=== PATIENT | female | born 1980 | race Caucasian/White ===

== ENCOUNTER 2024-12-29 10:44 | Emergency (ER) | payer OTHER, SELFPAY ==
--- NOTE | ~2024-12-29 | US_ITS ---
CLINICAL HISTORY: RUQ pain, vomiting US abdomen limited, with color and pulsed Doppler of the portal vein: Comparison: None Findings: Liver is normal in size, 14.1 cm in length. Main portal vein Doppler shows antegrade flow. No sonographic Cortes sign. Gallbladder is normal in size. There are no calculi. Gallbladder wall thickness is 2 mm. Common bile duct diameter is 4 mm. Right kidney measures 9.2 cm. No ascites in the right upper quadrant. Impression: Normal right upper quadrant ultrasound This document has been electronically signed by: Nikita Camarillo MD on 12/29/2024 14:17:43
[2024-12-29 10:54] VITALS: BP 113/74; PULSE 100; RESP 18; TEMP 36.1; O2SAT 100; BMI 31.4
[2024-12-29 11:14] LABS: MANUAL DIFF FLAG NO
[2024-12-29 11:28] LABS: Basophils Absolute Auto 0.1 X10*3/uL (0.0-0.2); Basophils Percent Auto 0.6 % (0-2); Eosinophils Absolute Auto 0.2 X10*3/uL (0.0-0.4); Eosinophils Percent Auto 2.8 % (0-4); Hemoglobin 14.2 g/dl (12.0-16.0); Imm Gran Abs Auto 0.02 X10*3/uL (0.00-0.03); Imm Gran Pct Auto 0.2 % (0.0-0.4); Lymphocytes Absolute Auto 1.3 X10*3/uL (1.2-4.9); Mean Corpuscular HGB Conc 33.8 g/dl (31.0-35.0); Mean Corpuscular Volume 88.6 fL (80.0-98.0); Mean Platelet Volume 10.6 fL (9.4-12.3); Monocytes Absolute Auto 0.7 X10*3/uL (0.1-1.2); Monocytes Percent Auto 8.6 % (2-11); Neutrophils Absolute Auto 6.3 x10*3/uL (2.0-8.3); Neutrophils Percent Auto 72.8 % (45-73); Platelet Count 263 X10*3/uL (160-400); Red Blood Count 4.74 X10*6/uL (4.20-5.50); Red Cell Distribution Width 12.9 % (11.0-16.0); White Blood Count 8.6 X10*3/uL (4.8-10.8)
[2024-12-29 11:31] LABS: Magnesium 1.8 mg/dL (1.6-2.6)
[2024-12-29 11:32] LABS: Alanine Aminotransferase 15 U/L (0-31); Albumin Level 4.5 g/dL (3.5-5.0); Alkaline Phosphatase 55 U/L (39-117); Anion Gap 14 (12-20); Aspartate Amino Transferase 16 U/L (5-31); Bilirubin Total 1.3 mg/dL (0.0-1.0); Blood Urea Nitrogen 14 mg/dL (9-16); Calcium 9.8 mg/dL (8.4-10.2); Carbon Dioxide 22 mmol/L (22-29); Chloride 109 mmol/L (96-108); Creatinine Clr Calc Pharmacy 108.9; Estimated Glomerular Filt Rate > 60; Glucose Random 91 mg/dL (60-115); Lipase 11 U/L (8-78); Potassium 5.1 mmol/L (3.3-5.1); Sodium 140 mmol/L (135-145); Total Protein 7.4 g/dL (6.5-8.0)
--- NOTE | 2024-12-29 13:10 | ED_ITS ---
HPI - Abdominal Pain General Chief Complaint: Abdominal Pain Stated Complaint: abd pain Time Seen by Provider: 12/29/24 13:02 Source: patient and family Mode of arrival: ambulatory Limitations: no limitations History of Present Illness ED Provider: ALLA HPI narrative: 44 yo female with PMH of HTN, DM, PCOS, endometriosis, here with c/o RUQ pain, n/v vomiting since yesterday. She also has intermittent diarrhea. No fevers. She tried to wait at [facility] but was not seen for 12 hours so she left triage yesterday. She has only had prior ovarian cyst removal no other surgeries. She comes in as the pain is not better and she has not been able to eat or drink. She denies travel, sick contacts, food exposures. MD elicited complaint: abdominal pain Pertinent past history: none Onset (ago): day(s) (yesterday) Pain Consistency: constant Location: epigastric, periumbilical and RUQ Severity: moderate Quality: stabbing and aching Radiation: epigastric Migration to: no migration Exacerbating factors: eating, vomiting and movement Relieving factors: nothing Associated symptoms: nausea, vomiting and diarrhea Related Data Previous Rx's ?Medication ?Instructions ?Recorded ondansetron 4 mg disintegrating 4 mg PO Q8H PRN nausea and 12/29/24 tablet vomiting #20 tabs sucralfate 100 mg/mL oral 10 ml PO BID 7 days #140 mL 12/29/24 suspension (Carafate) Allergies Allergy/AdvReac Type Severity Reaction Status Date / Time Penicillins Allergy Hives Verified 12/29/24 10:57 Review of Systems Review of Systems Constitutional : No Weight loss, No Fever, No Chills ENT/Mouth : No sore throat, No Rhinorrhea Eyes: No Swelling, No Redness Cardiovascular : No Chest Pain, No SOB, NoEdema Respiratory : No Cough, No Sputum, No Wheezing Gastrointestinal : Positive Nausea, Positive Vomiting, positive Diarrhea, positive abdominal Pain, No Hematochezia, No Melena Genitourinary : No Dysuria, No Urinary Frequency, No Hematuria, No Urgency Musculoskeletal : No joint pain, No Myalgias, No Joint Swelling Skin : No Skin Lesions, No rash Neuro : No Weakness, No Numbness, No Dizziness, No Headache Psych : No Anxiety/Panic, No Depression All other systems reviewed and are negative. PMFSH Past Medical History Attestation statement: The following information was validated with the patient. Medical History Migraine Diabetes PCOS (polycystic ovarian syndrome) Endometriosis Social History Social History (Updated 12/29/24 @ 13:51 by Diana Gasca DO) Patient Tobacco Use Status: Tobacco use Unknown Smoked in Last 30 Days: No Use of substances other than those prescribed or required for medical reasons: No Advance Directives: No Advance Directives Information Provided: No Physical Exam ED Vital Signs: Vital Signs - 24 hr 12/29/24 10:54 12/29/24 13:18 Temperature 97.0 F 97.0 F Pulse Rate 100 80 Respiratory Rate 18 18 Blood Pressure 113/74 107/53 L Pulse Oximetry 100 100 Oxygen Delivery Method Room Air Room Air BMI result Body Mass Index 31.4 Appearance: Alert. Oriented X3. No acute distress. Eyes: Pupils equal, round and reactive to light. ENT: Pharynx normal. Neck: Normal inspection. Neck supple. CVS: Normal heart rate and rhythm. Pulses normal. Respiratory: No respiratory distress. Breath sounds normal. Abdomen: Soft and moderate epigastric ttp with + foote's sign Skin: Skin warm and dry. Normal skin color. Extremities: No lower extremity edema. Neuro: Oriented X 3. No motor deficit. No sensory deficit. CN2-12 intact Medical Decision Making Medical Decision Making MDM Narrative: 44 yo female with PMH of HTN, DM, PCOS, endometriosis, here with c/o upper abdominal pain and RUQ pain + n/v and some diarrhea at this time will obtain labs, hydrate, start on IV toradol for pain control and obtain US to evaluate GB pathology. Suspect gastritis, biliary colic, viral syndrome Differential Diagnosis Differential Diagnoses: The differential diagnosis associated with the presentation includes gastritis, biliary colic, viral syndrome Admission/Observation Consideration of admission/observation: Escalation of care including admission/observation considered tolerating PO labs and US reassuring she feels much suspect gastritis Lab Data [facility] Lab Attestation statement: I reviewed the patient's lab results. 12/29/24 11:11 12/29/24 11:11 Labs: Lab Results 12/29/24 12/29/24 Range/Units 11:11 13:04 WBC 8.6 (4.8-10.8) X10*3/uL RBC 4.74 (4.20-5.50) X10*6/uL Hgb 14.2 (12.0-16.0) g/dl Hct 42.0 (37.0-47.0) % MCV 88.6 (80.0-98.0) fL MCH 30.0 (27.0-33.0) pg MCHC 33.8 (31.0-35.0) g/dl RDW 12.9 (11.0-16.0) % Plt Count 263 (160-400) X10*3/uL MPV 10.6 (9.4-12.3) fL Immature Gran % (Auto) 0.2 (0.0-0.4) % Neut % (Auto) 72.8 (45-73) % Lymph % (Auto) 15.0 L (20-40) % Oliver % (Auto) 8.6 (2-11) % Eos % (Auto) 2.8 (0-4) % Baso % (Auto) 0.6 (0-2) % Lymph # (Auto) 1.3 (1.2-4.9) X10*3/uL Oliver # (Auto) 0.7 (0.1-1.2) X10*3/uL Eos # (Auto) 0.2 (0.0-0.4) X10*3/uL Baso # (Auto) 0.1 (0.0-0.2) X10*3/uL Abs Immat Gran (auto) 0.02 (0.00-0.03) X10*3/uL Absolute Neuts (auto) 6.3 (2.0-8.3) x10*3/uL Absolute Nucleated RBC 0.000 (0.0-0.012) X10*3/uL Nucleated RBC % (auto) 0.0 (0.0-0.2) /100WBC Sodium 140 (135-145) mmol/L Potassium 5.1 (3.3-5.1) mmol/L Chloride 109 H (96-108) mmol/L Carbon Dioxide 22 (22-29) mmol/L Anion Gap 14 (12-20) BUN 14 (9-16) mg/dL Creatinine 0.72 (0.5-1.4) mg/dL Estim Creat Clear Calc 108.9 Estimated GFR > 60 Random Glucose 91 (60-115) mg/dL Calcium 9.8 (8.4-10.2) mg/dL Magnesium 1.8 (1.6-2.6) mg/dL Total Bilirubin 1.3 H (0.0-1.0) mg/dL AST 16 (5-31) U/L ALT 15 (0-31) U/L Alkaline Phosphatase 55 (39-117) U/L Total Protein 7.4 (6.5-8.0) g/dL Albumin 4.5 (3.5-5.0) g/dL Lipase 11 (8-78) U/L Urine Test NEGATIVE (NEGATIVE) Independent Interpretation I performed an independent interpretation of an: Ultrasound (no biliary colic) Radiology Impression Discussion of test interpretation with radiology: I have reviewed the radiologist's reading. Independent Historian Clinical information obtained from an independent historian. History obtained from or confirmed by: Spouse External Record Review External record reviewed: Outpatient record Prescription Management I considered prescription management with: Pain Medication and Other Medications Administered Discontinued Medications Generic Name Dose Route Start Last Admin Trade Name Freq PRN Reason Stop Dose Admin Diphenhydramine HCl 25 mg 12/29/24 13:14 12/29/24 13:37 Diphenhydramine Hcl 50 Mg/Ml Vial IVPUSH 12/29/24 13:15 25 mg ONCE ONE Administration Lactated Ringer's 1,000 mls @ 999 mls/hr 12/29/24 13:14 12/29/24 13:34 Lr IV 12/29/24 14:14 999 mls/hr .Q1H1M ONE Administration Ketorolac Tromethamine 15 mg 12/29/24 13:14 12/29/24 13:35 Ketorolac Tromethamine 15 Mg/Ml Vial IVPUSH 12/29/24 13:15 15 mg ONCE ONE Administration Metoclopramide HCl 10 mg 12/29/24 13:14 12/29/24 13:38 Metoclopramide Hcl 10 Mg/2 Ml Vial IVPUSH 12/29/24 13:15 10 mg ONCE ONE Administration Discharge Plan Discharge Clinical Impression: Gastritis Qualifiers: Gastritis type: unspecified gastritis Chronicity: acute Gastritis bleeding: w ithout bleeding Qualified Code(s): K29.00 - Acute gastritis without bleeding Patient Disposition: Home, Self-Care Instructions: Gastritis (ED), Diet for Stomach Ulcers and Gastritis (ED) Additional Instructions: given increased acid in your stomach I would avoid motrin, ibuprofen, aleve tylenol is okay labs and ultrasound are reassuring return for any worsening symptoms or concerns such as unable to eat or drink, vomiting, severe pain, black or bloody stools start the pepcid as soon as possible Prescriptions: New ondansetron 4 mg tablet,disintegrating 4 mg PO Q8H PRN (Reason: nausea and vomiting) Qty: 20 0RF sucralfate [Carafate] 100 mg/mL suspension 10 ml PO BID 7 Days Qty: 140 0RF Referrals: [facility] [Provider Group] (can try to call for sooner appointment) Print Language: Macedonian
[2024-12-29 13:13] LABS: UPreg QC Valid YES; Urine Pregnancy NEGATIVE (NEGATIVE)
[2024-12-29 13:18] VITALS: BP 107/53; PULSE 80; RESP 18; TEMP 36.1; O2SAT 100
[2024-12-29] MEDS: Lactated Ringers 1,000 ML 999 ML IV (13:34)
[2024-12-29] MEDS: Ketorolac Tromethamine 15 MG/ML VIAL IVPUSH (13:35)
[2024-12-29] MEDS: diphenhydrAMINE HCL 50 MG/ML VIAL 25 MG IVPUSH (13:37)
[2024-12-29] MEDS: Metoclopramide HCl 10 MG/2 ML VIAL IVPUSH (13:38)
[2024-12-29 16:31] VITALS: BP 107/58; PULSE 91; RESP 16; TEMP 36.9; O2SAT 100
== END 2024-12-29 16:32 | disposition home or self-care (01) ==
PROVIDERS: Physician Assistant; Emergency Provider Emergency Medicine; PCP Nurse Practitioner Gerontology
DX: K29.00 Acute gastritis without bleeding (principal); R10.2 Pelvic and perineal pain; R10.11 Right upper quadrant pain; R11.2 Nausea with vomiting, unspecified; Z79.899 Other long term (current) drug therapy
CPT/HCPCS: 36415; 76705; 80053; 81025; 83690; 83735; 85025; 96374; 96375; 99284; J1200; J1885; J2765; J7120

== ENCOUNTER → 2024-12-29 13:14 | Outpatient (BNV) | payer OTHER, SELFPAY | PROVIDERS: Emergency Provider Emergency Medicine; PCP Nurse Practitioner Gerontology; Visit Provider Radiology Diagnostic Radiology | DX: R10.11 Right upper quadrant pain (principal) | CPT/HCPCS: 76705 ==